=== PATIENT | female | born 1945 | race Caucasian/White ===

== ENCOUNTER 2019-05-11 08:29 | Inpatient (IN) ==
[2019-05-11] MEDS ORDERED: IOPAMIDOL 100 ML BOTTLE IV ONE (08:30)
[2019-05-11] MEDS ORDERED: LACTATED RINGERS 1,000 ML IV ONE (09:03)
[2019-05-11] MEDS ORDERED: PANTOPRAZOLE 40 MG VIAL IV ONE (09:03)
[2019-05-11] MEDS ORDERED: ONDANSETRON 4 MG/2 ML VIAL IV ONE ×2 (09:03→10:27)
[2019-05-11] MEDS ORDERED: SUCRALFATE 1 GM/10 ML ORAL.SUSP PO ONE (09:04)
--- NOTE | 2019-05-11 09:07 | Emergency Department Note ---
Abdominal Pain HPI - General Chief Complaint: Abdominal Pain Stated Complaint: Stomach Pain Time Seen by Provider: 05/11/19 08:55 Source: patient, family Mode of arrival: ambulatory Limitations: no limitations - History of Present Illness HPI Narrative: This 73-year-old female presents to ED with a history of waking up this morning noticing a vague discomfort in the epigastric area. Since then her pain is worsened it. She does tell me that she had a cup of coffee to drink. Does have a little bit of nausea but no vomiting. He is localized in the epigastric area and she denies a history of this before. She did try taking a chewable Pepcid AC but this has not helped any. She thinks was 10 mg. Since then. The pain is worsened in the sense that it seems very severe and intense at times, but then lets up and she is okay. Nonradiating pain. She did have recent surgery in January where she had a bladder suspension surgery, but she denies any lower pelvic pain. She had a normal bowel movement this morning, denies blood in the stools, denies recent flulike symptoms, she's had no chest pain, no shortness of breath. No cardiac history, she's been healthy otherwise. MD Complaint: abdominal pain - Related Data Home Medications Medication Instructions Recorded Confirmed Calcium 1,200 mg PO QDAY 11/27/18 02/26/19 aspirin 81 mg tablet,delayed 81 mg PO QDAY 11/27/18 02/26/19 release cholecalciferol (vitamin D3) 25 1,000 unit PO QDAY 11/27/18 02/26/19 mcg (1,000 unit) capsule diphenhydramine 25 2 tab PO QHS PRN 11/27/18 02/26/19 mg-acetaminophen 500 mg tablet glucosamine sulfate 750 mg tablet 750 mg PO QDAY tab 11/27/18 02/26/19 [id number] 1 tab PO QDAY 11/27/18 02/26/19 naproxen sodium 220 mg tablet 220 mg PO BID PRN 11/27/18 02/26/19 omega-3 fatty acids 1,000 mg 2,000 mg PO QDAY 11/27/18 02/26/19 capsule polyethylene glycol 3350 17 17 g PO QHS PRN g 11/27/18 02/26/19 gram/dose oral powder vit C-vit [id number] PO QDAY 11/27/18 02/26/19 conjugated estrogens 0.625 mg/gram 0.3125 mg VAGINAL .twice weekly g 04/06/19 vaginal cream Previous Rx's Medication Instructions Recorded fluticasone propionate 50 1 spray INTRANASAL QDAY #18.2 ml 02/26/19 mcg/actuation nasal spray,suspension levothyroxine 50 mcg tablet 50 mcg PO QDAY #90 tab 02/26/19 atorvastatin 10 mg tablet See Rx Instructions .ROUTE 04/20/19 .COMPLEX #90 tablet Allergies Allergy/AdvReac Type Severity Reaction Status Date / Time No Known Drug Allergies Allergy Verified 05/11/19 08:36 Review of Systems All systems ED: reviewed and negative except as stated. 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 Absent: conjunctival injection ENT: Present: normal exam, normal oropharynx, mucous membranes moist, TM's normal bilaterally Neck: Present: normal inspection, full ROM Chest: Present: normal inspection, symmetric chest wall rise Respiratory: Present: normal lung sounds bilaterally. Absent: respiratory distress, rales/crackles Cardiovascular: Present: regular rate, normal rhythm, normal heart sounds Abdominal: Present: soft, tenderness, normal bowel sounds. Absent: distention, guarding, rebound, rigidity Abdominal tenderness: Present: epigastrium, mild, other (abdomen generally soft, without guarding or rebound) Course - Reevaluation(s) Reevaluation #1: Signed out to Dr. Mix 930 am Vital Signs Temperature 96.8 F L 05/11/19 08:36 Pulse Rate 71 05/11/19 08:36 Respiratory Rate 18 05/11/19 08:36 Blood Pressure 194/96 05/11/19 08:36 Pulse Oximetry (%) 100 05/11/19 08:36 Temperature 96.8 F L 05/11/19 08:36 Pulse Rate 71 05/11/19 08:36 Respiratory Rate 18 05/11/19 08:36 Blood Pressure 194/96 05/11/19 08:36 Pulse Oximetry (%) 100 05/11/19 08:36 Disposition Pt seen by COMPOUND MACHINE OPERATOR/PA only: No Clinical Impression: Abdominal pain Disposition: Still a Patient Condition: Good Referrals: Zenaida Lazar ARNP [Primary Care Provider] -
[2019-05-11 09:48] LABS: Basophils # (Auto) 0.04 K/mcL (0.00-0.30); Basophils % (Auto) 0.5 % (0.0-2.0); Eosinophils # (Auto) 0.23 K/mcL (0.00-0.70); Eosinophils % (Auto) 2.7 % (0.0-7.0); Granulocytes % (Auto) 47.8 % (38.0-78.0); Hematocrit 44.1 % (34.1-44.9); Hemoglobin 14.2 g/dL (11.2-15.7); Lymphocytes # (Auto) 3.68 K/mcL (1.50-4.80); Lymphocytes % (Auto) 42.5 % (15.5-49.0); Mean Cell Volume 89.1 fL (80.0-100.0); Mean Corpuscular HGB Conc 32.2 g/dL (31.0-36.0); Mean Platelet Volume 9.6 fL (7.4-10.4); Monocytes # (Auto) 0.56 K/mcL (0.10-0.90); Monocytes % (Auto) 6.5 % (1.0-12.0); Platelet Count 239 K/mcL (140-440); RBC 4.95 M/mcL (3.59-5.38); Red Cell Distribution Width 12.9 % (11.5-14.5); WBC 8.7 K/mcL (4.50-11.00)
[2019-05-11] MEDS: HYDROmorphone 2 MG/ML VIAL IV PRN ×3 (09:49→14:34)
--- NOTE | 2019-05-11 09:59 | XRay Report ---
CLINICAL INFORMATION: abd pain COMPARISON: None. FINDINGS: The stomach, small and large bowel are normal caliber. There is no free air, soft tissue mass, organomegaly or pathologic calcification. IMPRESSION: Normal abdomen. Moderate rectal stool incidentally noted Interpreted and Authenticated by: Orion Cruz 05/11/19
--- NOTE | 2019-05-11 10:04 | Emergency Department Note ---
Abdominal Pain HPI - General Chief Complaint: Abdominal Pain Stated Complaint: Stomach Pain Time Seen by Provider: 05/11/19 08:55 Source: patient, family Mode of arrival: ambulatory Limitations: no limitations - History of Present Illness HPI Narrative: See history and physical dictated by Dr. Marr. I am seeing patient in follow-up after change in shift. CBC unremarkable; additional labs pending. Abdominal film: "Normal abdomen. Moderate rectal stool incidentally noted". MD Complaint: abdominal pain - Related Data Home Medications Medication Instructions Recorded Confirmed aspirin 81 mg tablet,delayed 81 mg PO QDAY 11/27/18 05/11/19 release cholecalciferol (vitamin D3) 25 1,000 unit PO QDAY 11/27/18 05/11/19 mcg (1,000 unit) capsule diphenhydramine 25 2 tab PO QHS PRN 11/27/18 05/11/19 mg-acetaminophen 500 mg tablet omega-3 fatty acids 1,000 mg 2,000 mg PO QDAY 11/27/18 05/11/19 capsule polyethylene glycol 3350 17 17 g PO QHS PRN g 11/27/18 05/11/19 gram/dose oral powder conjugated estrogens 0.625 mg/gram 0.3125 mg VAGINAL .twice weekly g 04/06/19 05/11/19 vaginal cream Atorvastatin [Lipitor] 10 mg PO HS 05/11/19 05/11/19 Calcium Carbonate [Calcium] 500 mg PO BID 05/11/19 05/11/19 Loratadine [Claritin] 10 mg PO DAILY 05/11/19 05/11/19 Vit A,C & E/Lutein/Minerals 1 tab PO DAILY 05/11/19 05/11/19 [Ocuvite] Previous Rx's Medication Instructions Recorded fluticasone propionate 50 1 spray INTRANASAL QDAY #18.2 ml 02/26/19 mcg/actuation nasal spray,suspension levothyroxine 50 mcg tablet 50 mcg PO QDAY #90 tab 02/26/19 Allergies Allergy/AdvReac Type Severity Reaction Status Date / Time No Known Drug Allergies Allergy Verified 05/11/19 08:36 Abdominal Pain PMH - Past Medical History 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 ) Family history: Reports: no significant family history - Social History Smoking status: Former smoker Alcohol use: Reports: Rarely Drug use: Reports: none Physical Exam Limitations: no limitations General appearance: alert, in no apparent distress Course Vital Signs Temperature 96.8 F L 05/11/19 08:36 Pulse Rate 71 05/11/19 08:36 Respiratory Rate 18 05/11/19 08:36 Blood Pressure 194/96 05/11/19 08:36 Pulse Oximetry (%) 100 05/11/19 08:36 Temperature 96.8 F L 05/11/19 08:36 Pulse Rate 81 05/11/19 17:32 Respiratory Rate 18 05/11/19 08:36 Blood Pressure 178/89 05/11/19 17:32 Pulse Oximetry (%) 98 05/11/19 17:32 Abdominal Pain - MDM Narrative Medical decision making narrative: Abdominal plain film was unremarkable. Labs were unremarkable with a normal H&H and WBC 8.7, lipase normal. 10:26 AM - some additional nausea with some emesis and given additional antiemetic. US - Normal gallbladder, bile ducts, liver and pancreas. Later in the day she clarified that she had come to the emergency room with a primary concern of the epigastric pain, not the nausea and vomiting at that time. She seemed quite stable and I was about to do omeprazole and nausea medication and send her home. However, she persisted with some of the symptoms of the epigastric discomfort enough and [place] enough to go ahead and order a CT scan of the abdomen and pelvis. 4:06 PM - spoke with radiologist, Dr. Orion Cruz, who points out that he has not seen these much in his career but identifies a right paraduodenal hernia causing some compression of the stomach. 4:09 PM - I spoke with Dr. Addy Modi regarding above and he will further investigate/review. 4:31 PM - I spoke with Dr. Modi who is willing to consult and take care of this patient. I spoke with the patient and she is excepting the possibility of staying here for treatment and would like to speak with Dr. Modi. Dr. Modi notified who will come and speak with the patient. A bed is available. - Lab Data Result diagrams: 05/11/19 09:15 05/11/19 10:31 Lab Results 05/11/19 05/11/19 05/11/19 Range/Units 09:15 09:15 09:15 WBC 8.7 (4.50-11.00) K/mcL RBC 4.95 (3.59-5.38) M/mcL Hgb 14.2 (11.2-15.7) g/dL Hct 44.1 (34.1-44.9) % MCV 89.1 (80.0-100.0) fL MCH 28.7 (26.0-34.0) pg MCHC 32.2 (31.0-36.0) g/dL RDW 12.9 (11.5-14.5) % Plt Count 239 (140-440) K/mcL MPV 9.6 (7.4-10.4) fL Gran % 47.8 (38.0-78.0) % Lymph % (Auto) 42.5 (15.5-49.0) % [place] % (Auto) 6.5 (1.0-12.0) % Eos % (Auto) 2.7 (0.0-7.0) % Baso % (Auto) 0.5 (0.0-2.0) % Gran # 4.14 (1.80-8.00) K/mcL Lymph # (Auto) 3.68 (1.50-4.80) K/mcL [place] # (Auto) 0.56 (0.10-0.90) K/mcL Eos # (Auto) 0.23 (0.00-0.70) K/mcL Baso # (Auto) 0.04 (0.00-0.30) K/mcL VBG Lactic Acid 1.1 (0.5-2.0) mmol/L Sodium TNP Potassium TNP Chloride TNP Carbon Dioxide TNP Anion Gap TNP BUN TNP Creatinine TNP GFR Calculation TNP Glucose TNP Calcium TNP Total Bilirubin TNP AST TNP ALT TNP Alkaline Phosphatase TNP C-Reactive Protein TNP Total Protein TNP Albumin TNP Globulin TNP Albumin/Globulin Ratio TNP Lipase TNP Urine Color Urine Appearance Urine pH (5.0-9.0) Ur Specific [place] (1.000-1.035) Urine Protein (NEG) mg/dL Urine Glucose (UA) (NEG) mg/dL Urine Ketones (NEG) mg/dL Urine Occult Blood (<0.03) mg/dL Urine Nitrate (NEG) Urine Bilirubin (NEG) mg/dL Urine Urobilinogen (NEG) mg/dL Ur Leukocyte Esterase (NEG) /uL Urine RBC (0-1) /hpf Urine WBC (0-4) /hpf Ur Squamous Epith Cells (0-4) /hpf Ur Transition Epith Cell (0-2) /hpf Urine Bacteria (0) /hpf Ur Culture Indicated? 05/11/19 05/11/19 Range/Units 09:35 10:31 WBC (4.50-11.00) K/mcL RBC (3.59-5.38) M/mcL Hgb (11.2-15.7) g/dL Hct (34.1-44.9) % MCV (80.0-100.0) fL MCH (26.0-34.0) pg MCHC (31.0-36.0) g/dL RDW (11.5-14.5) % Plt Count (140-440) K/mcL MPV (7.4-10.4) fL Gran % (38.0-78.0) % Lymph % (Auto) (15.5-49.0) % [place] % (Auto) (1.0-12.0) % Eos % (Auto) (0.0-7.0) % Baso % (Auto) (0.0-2.0) % Gran # (1.80-8.00) K/mcL Lymph # (Auto) (1.50-4.80) K/mcL [place] # (Auto) (0.10-0.90) K/mcL Eos # (Auto) (0.00-0.70) K/mcL Baso # (Auto) (0.00-0.30) K/mcL VBG Lactic Acid (0.5-2.0) mmol/L Sodium 140 Potassium 3.5 Chloride 107 Carbon Dioxide 23 Anion Gap 10.0 BUN 13 Creatinine 0.8 GFR Calculation 74 Glucose 131 H Calcium 9.1 Total Bilirubin 0.5 AST 24 ALT 26 Alkaline Phosphatase 42 C-Reactive Protein < 0.3 Total Protein 6.5 Albumin 4.1 Globulin 2.4 Albumin/Globulin Ratio 1.7 Lipase 18 Urine Color Straw Urine Appearance Clear Urine pH 9.0 (5.0-9.0) Ur Specific [place] 1.005 (1.000-1.035) Urine Protein Neg (NEG) mg/dL Urine Glucose (UA) Negative (NEG) mg/dL Urine Ketones Neg (NEG) mg/dL Urine Occult Blood 0.03 A (<0.03) mg/dL Urine Nitrate Neg (NEG) Urine Bilirubin Neg (NEG) mg/dL Urine Urobilinogen Neg (NEG) mg/dL Ur Leukocyte Esterase Neg (NEG) /uL Urine RBC 2 H (0-1) /hpf Urine WBC 0 (0-4) /hpf Ur Squamous Epith Cells 2 (0-4) /hpf Ur Transition Epith Cell < 1 (0-2) /hpf Urine Bacteria Few A (0) /hpf Ur Culture Indicated? Yes Disposition Pt seen by PAINTER PLATE/PA only: No Clinical Impression: Hernia, internal Abdominal pain Qualifiers: Abdominal location: epigastric Qualified Code(s): R10.13 - Epigastric pain Summary: Patient was evaluated by Dr. Modi and scheduled for surgery in the morning. See above. Disposition: Xfer As Inpt ([facility]) Condition: Fair Referrals: Zenaida Lazar ARNP [Primary Care Provider] -
[2019-05-11 10:24] LABS: Appearance,Urine CLEAR; Bacteria,Urine FEW /hpf (0); Bilirubin,Urine NEG (NEG); Color,Urine STRAW; Culture Indicated,Urine YES; Glucose,Urine (UA) NEGATIVE (NEG); Ketones,Urine NEG (NEG); Leukocyte Esterase,Urine NEG /uL (NEG); Nitrate,Urine NEG (NEG); Protein,Urine NEG (NEG); Specific Gravity,Urine 1.005 (1.000-1.035); Urine Blood 0.03 mg/dL (<0.03); Urine RBC 2 /hpf (0-1); Urine Squamous Epithelial Cell 2 /hpf (0-4); Urine Transitional Epi Cells < 1 /hpf (0-2); Urine WBC 0 /hpf (0-4); Urobilinogen,Urine NEG (NEG)
[2019-05-11] MEDS ORDERED: ONDANSETRON 4 MG/2 ML VIAL ONE (10:28)
[2019-05-11] MEDS ORDERED: PROMETHAZINE 25 MG/ML VIAL IV ONE ×2 (11:08→16:56)
[2019-05-11 11:29] LABS: Chloride 107 mmol/L (96-108)
[2019-05-11 11:30] LABS: ALT/SGPT 26 U/l (0-40); AST/SGOT 24 U/l (0-37); Albumin 4.1 gm/dL (3.2-5.2); Albumin/Globulin Ratio 1.7 (1.0-2.3); Alkaline Phosphatase 42 U/L (39-117); Bilirubin,Total 0.5 mg/dL (0.0-1.0); Blood Urea Nitrogen 13 mg/dl (8-23); C-Reactive Protein < 0.3 mg/dl (0.0-0.8); Calcium 9.1 mg/dl (8.6-10.4); Carbon Dioxide 23 mmol/L (22-30); Globulin 2.4 gm/dL (2.2-3.7); Glomerular Filtration Rate 74; Glucose 131 mg/dL (70-105)
--- NOTE | 2019-05-11 13:22 | Ultrasound Report ---
CLINICAL INFORMATION: abd pain, possible gall bladder COMPARISON: None. FINDINGS: Gallbladder and bile ducts are normal CBD is 4 mm. The liver and pancreas are normal in size and echotexture without focal lesion. No free fluid IMPRESSION: Normal gallbladder, bile ducts, liver and pancreas. Interpreted and Authenticated by: Orion Cruz 05/11/19
[2019-05-11] MEDS ORDERED: PROCHLORPERAZINE 10 MG/2 ML VIAL IV ONE (15:04)
--- NOTE | 2019-05-11 16:03 | Cat Scan Report ---
CLINICAL INFORMATION: Epigastric pain COMPARISON: None. TECHNIQUE: Following enteric contrast, 80 cc of Isovue-370 were injected intravenously, and 60 seconds later, 0.625 mm helical slices were obtained from the mid heart through the subtrochanteric regions. Following reconstruction, 2.5 mm sagittal, coronal and axial reformatted images were processed and reviewed at bone, lung and soft tissue windows. Five minutes later, 0.625 mm helical slices were obtained from the mid heart through the kidneys and viewed at soft tissue windows.The exam was performed using radiation dose optimization techniques including, but not limited to, automated exposure control, adjustment of the mA and/or kV according to patient size and use of iterative reconstruction technique. FINDINGS: Lung bases show no abnormality no effusion. The visualized heart is normal. Abdominal images show mild fatty change within the liver without focal lesion. Gallbladder and bile ducts are normal CBD is 5 mm. Both kidneys, adrenal glands, spleen, pancreas and aorta are normal in size configuration and attenuation without focal lesion. There is no free air, free fluid or adenopathy. Pelvic images show hysterectomy changes. The ovaries are not identified either surgically absent or atrophic. Urinary bladder is unremarkable. There is a large right paraduodenal hernia consisting of the hepatic flexure which has migrated superiorly and medially through the fossa of [place]. The hernia sac spans 10 cm and consists of a markedly dilated hepatic flexure, a small bowel segment, mesenteric fat and swirled mesenteric vessels fat . It is juxtaposed to the anterior surface of the pancreas. It is also posterior to the gastric antrum which is markedly extrinsically compressed by the hernia sac. It has not resulted in bowel obstruction pattern. The remainder of the colon is unremarkable. Bone windows show no osseous abnormality. IMPRESSION: Large right paraduodenal hernia transgressed through the fossa of [place]. The 10 cm hernia sac consists of the hepatic flexure, a small bowel segment, mesenteric fat and whirling mesenteric vessels . It is anterior to the pancreas. It is posterior to the gastric antrum resulting in severe extrinsic gastric compression. Stomach compression has likely resulted in decreased oral intake and the reason for lack of bowel obstruction pattern. No evidence of perforation or free fluid to suggest third spacing. Interpreted and Authenticated by: Orion Cruz 05/11/19
--- NOTE | 2019-05-11 17:23 | General Surg History&Physical ---
History of Present Illness Patient information: Note initiated : 05/11/19 at 5:20 pm Service Date, if different from initiated Date: [] Patient: Sirisha Patterson a 73 y/o F admitted on for Stomach Pain. Chief Complaint: [] HPI: Ms. Patterson is a 73 year old F admitted with severe abdominal pain nausea and vomiting. The patient had onset of midepigastric pain about 4 AM today. The pain increased in intensity and she finally was seen in the emergency room. Initial x-rays were nondiagnostic but she continued to be symptomatic, so a follow-up CT was done. CT shows a right paraduodenal hernia with entrapment of hepatic flexure of colon and multiple loops of small bowel and omentum. This is causing compression of the antrum and blockage of the duodenum. She has a large volume of liquid in her stomach. The patient is having recurrent emesis while she is being evaluated, but this appears to be mostly contrast. She is counseled for laparotomy with reduction of the colon and small bowel loops and subsequent closure of the hernia defect into the lesser sac. Review of Systems All systems PM: reviewed and no additional remarkable complaints except as stated (negative except as noted in the history of present illness) Past History Past medical history: Hypertension, untreated Past surgical history: Robotic puborectal sling January 2009 Vaginal hysterectomy many years ago Past family history: Father age 74 due to complications of coronary artery disease and peripheral vascular disease Mother age 94 due to natural causes Past social history: Lives locally. No tobacco use. Drinks wine every night. Denies drug use Medications and Allergies Home Medications Medication Instructions Recorded Confirmed Type aspirin 81 mg tablet,delayed 81 mg PO QDAY 11/27/18 05/11/19 History release cholecalciferol (vitamin D3) 25 1,000 unit PO QDAY 11/27/18 05/11/19 History mcg (1,000 unit) capsule diphenhydramine 25 2 tab PO QHS PRN 11/27/18 05/11/19 History mg-acetaminophen 500 mg tablet omega-3 fatty acids 1,000 mg 2,000 mg PO QDAY 11/27/18 05/11/19 History capsule polyethylene glycol 3350 17 17 g PO QHS PRN g 11/27/18 05/11/19 History gram/dose oral powder fluticasone propionate 50 1 spray INTRANASAL QDAY #18.2 ml 02/26/19 05/11/19 Rx mcg/actuation nasal spray,suspension levothyroxine 50 mcg tablet 50 mcg PO QDAY #90 tab 02/26/19 05/11/19 Rx conjugated estrogens 0.625 mg/gram 0.3125 mg VAGINAL .twice weekly g 04/06/19 05/11/19 History vaginal cream Atorvastatin [Lipitor] 10 mg PO HS 05/11/19 05/11/19 History Calcium Carbonate [Calcium] 500 mg PO BID 05/11/19 05/11/19 History Loratadine [Claritin] 10 mg PO DAILY 05/11/19 05/11/19 History Vit A,C & E/Lutein/Minerals 1 tab PO DAILY 05/11/19 05/11/19 History [Ocuvite] Allergies Allergy/AdvReac Type Severity Reaction Status Date / Time No Known Drug Allergies Allergy Verified 05/11/19 08:36 Exam Temp Pulse Resp BP Pulse Ox 96.8 F L 65 18 156/80 95 05/11/19 08:36 05/11/19 16:14 05/11/19 08:36 05/11/19 16:01 05/11/19 16:14 - General physical appearance well developed, well nourished, no distress - Eyes PERRL, normal ocular movement - ENT normal pinna, normal nares, normal mucosa, no hearing loss, no congestion - Head Head exam IM: Present: atraumatic, normocephalic - Neck no masses, no bruits, trachea midline, no lymphadenopathy, no venous distension - Cardiovascular Cardiovascular exam IM: Present: normal rate and rhythm, RRR, +S1, +S2. Absent: JVD, tachycardia - Respiratory normal expansion, normal respiratory effort, clear to auscultation - Abdomen Abdomen: Present: soft, tender (epigastric tenderness and fullness without palpable mass), bowel sounds Hernia: Present: none - Genitourinary Present: normal external genitalia - Integumentary Present: no rash, no growths, no abnormal pigmentation - Neurologic Present: normal coordination, normal sensation - Musculoskeletal Present: normal gait, normal posture - Psychiatric Present: oriented to time, oriented to person, oriented to place, speech is normal, memory intact Assessment and Plan (1) Complete gastric outlet obstruction Nasogastric decompression tonight. IV hydration. Scheduled for laparotomy with repair of internal hernia and decompression of colon and small bowel in the morning. IV antibiotic coverage pending surgery Status: Acute (2) Hernia, internal As noted above Status: Acute
[2019-05-11] MEDS ORDERED: PROMETHAZINE 25 MG/ML VIAL IV PRN (17:29)
[2019-05-11] MEDS ORDERED: ONDANSETRON 4 MG/2 ML VIAL IV PRN (17:29)
[2019-05-11] MEDS ORDERED: HYDROmorphone 2 MG/ML VIAL IV PRN ×2 (17:29→17:36)
[2019-05-11] MEDS ORDERED: cefTRIAXone 1 GM in DEXTROSE 5% IN WATER 50 ML IV SCH (17:30)
[2019-05-11] MEDS ORDERED: hydrALAZINE 20 MG/ML VIAL IV PRN (17:36)
[2019-05-11] MEDS ORDERED: ACETAMINOPHEN 1,000 MG in PREMIX 1 BAG IV SCH (17:45)
[2019-05-11] MEDS ORDERED: ACETAMINOPHEN 900 MG/90 ML BOTTLE IV PRN (18:36)
[2019-05-11 19:29] LABS: INR 0.9 (0.9-1.1); Prothrombin Time 12.2 sec (11.9-14.5)
[2019-05-11] MEDS: cefTRIAXone 1 GM VIAL IV SCH (20:05)
[2019-05-11] MEDS: LACTATED RINGERS 1,000 ML IV SCH (20:12)
[2019-05-11] MEDS: METOCLOPRAMIDE 10 MG/2 ML VIAL IV SCH ×2 (20:13→23:55)
[2019-05-11] MEDS ORDERED: BENZOCAINE 1 SPRAY BOTTLE TOPICAL PRN (21:05)
[2019-05-11] MEDS ORDERED: BENZOCAINE 1 SPRAY BOTTLE TOPICAL ONE (21:07)
[2019-05-11] MEDS: 0.9 % SODIUM CHLORIDE 10 ML SYRINGE IV SCH (22:21)
[2019-05-11] MEDS: LORazepam 2 MG/ML VIAL IV PRN (22:21)
[2019-05-12] MEDS: LACTATED RINGERS 1,000 ML IV SCH ×4 (03:25→21:41)
--- NOTE | 2019-05-12 04:43 | XRay Report ---
CLINICAL INFORMATION: NG Tube Placement COMPARISON: None. FINDINGS: NG tube overlies the gastric fundus. Stool gas pattern is normal. No free air, soft tissue mass or organomegaly. Residual contrast seen within the upper collecting systems of the kidney. IMPRESSION: NG tube overlying the gastric fundus. No acute disease Interpreted and Authenticated by: Orion Cruz 05/12/19
[2019-05-12] MEDS: METOCLOPRAMIDE 10 MG/2 ML VIAL IV SCH ×3 (05:44→18:16)
[2019-05-12] MEDS: 0.9 % SODIUM CHLORIDE 10 ML SYRINGE IV SCH ×3 (06:08→23:05)
[2019-05-12] MEDS: LORazepam 2 MG/ML VIAL IV PRN (06:41)
[2019-05-12 07:08] LABS: Basophils # (Auto) 0.05 K/mcL (0.00-0.30); Basophils % (Auto) 0.4 % (0.0-2.0); Eosinophils # (Auto) 0.21 K/mcL (0.00-0.70); Eosinophils % (Auto) 1.7 % (0.0-7.0); Granulocytes % (Auto) 60.4 % (38.0-78.0); Hematocrit 36.2 % (34.1-44.9); Hemoglobin 11.8 g/dL (11.2-15.7); Lymphocytes # (Auto) 3.68 K/mcL (1.50-4.80); Lymphocytes % (Auto) 29.9 % (15.5-49.0); Mean Corpuscular HGB Conc 32.6 g/dL (31.0-36.0); Mean Platelet Volume 9.3 fL (7.4-10.4); Monocytes # (Auto) 0.93 K/mcL (0.10-0.90); Monocytes % (Auto) 7.6 % (1.0-12.0); Platelet Count 221 K/mcL (140-440); RBC 4.02 M/mcL (3.59-5.38); WBC 12.3 K/mcL (4.50-11.00)
[2019-05-12] MEDS ORDERED: PANTOPRAZOLE 40 MG VIAL IV SCH (07:30)
[2019-05-12 07:57] LABS: ALT/SGPT 22 U/l (0-40); AST/SGOT 22 U/l (0-37); Albumin 3.9 gm/dL (3.2-5.2); Albumin/Globulin Ratio 1.6 (1.0-2.3); Alkaline Phosphatase 42 U/L (39-117); Bilirubin,Direct < 0.2 mg/dL (0.0-0.3); Bilirubin,Total 0.5 mg/dL (0.0-1.0); Blood Urea Nitrogen 10 mg/dl (8-23); Carbon Dioxide 23 mmol/L (22-30); Chloride 106 mmol/L (96-108); Globulin 2.4 gm/dL (2.2-3.7); Glomerular Filtration Rate 74; Glucose 88 mg/dL (70-105); Lactate Dehydrogenase 172 U/L (94-250); Phosphorous 2.7 mg/dL (2.7-4.5); Triglycerides 74 mg/dl (<150); Uric Acid 4.7 mg/dL (2.5-8.0)
[2019-05-12] MEDS ORDERED: IPRATROPIUM/ALBUTEROL 3 ML AMPUL.NEB NEB PRN ×2 (09:00→11:14)
[2019-05-12] MEDS ORDERED: SCOPOLAMINE 1 PATCH PATCH TOPICAL PRN (09:30)
[2019-05-12] MEDS ORDERED: fentaNYL 100 MCG/2 ML VIAL IV ONE (10:06)
[2019-05-12] MEDS ORDERED: LIDOCAINE HCL/PF 100 MG/5 ML SYRINGE IV ONE (10:06)
[2019-05-12] MEDS ORDERED: PROPOFOL 200 MG/20 ML VIAL IV ONE (10:06)
[2019-05-12] MEDS ORDERED: ONDANSETRON 4 MG/2 ML VIAL IV ONE (10:06)
[2019-05-12] MEDS ORDERED: ROPIVACAINE HCL/PF 20 ML VIAL IJ ONE (10:06)
[2019-05-12] MEDS ORDERED: SUGAMMADEX SODIUM 200 MG/2 ML VIAL IV ONE (10:06)
[2019-05-12] MEDS ORDERED: KETAMINE 100 MG/ML ML IV ONE (10:06)
[2019-05-12] MEDS ORDERED: ROCURONIUM 10 MG/ML ML IV ONE (10:06)
[2019-05-12] MEDS ORDERED: DEXAMETHASONE 10 MG/ML VIAL IV ONE (10:06)
[2019-05-12] MEDS ORDERED: ePHEDrine 50 MG/ML AMPUL IV ONE (10:06)
--- NOTE | 2019-05-12 10:25 | XRay Report ---
CLINICAL INFORMATION: preoperative evaluation COMPARISON: None. FINDINGS: Heart size, mediastinum and pulmonary vessels are normal. The lungs are clear. No effusions. NG tube tip overlies the gastric antrum IMPRESSION: Negative Interpreted and Authenticated by: Orion Cruz 05/12/19
[2019-05-12] MEDS ORDERED: PROMETHAZINE 25 MG/ML VIAL IV PRN ×2 (11:14→12:44)
[2019-05-12] MEDS ORDERED: MEPERIDINE 25 MG/ML SYRINGE IV PRN (11:14)
[2019-05-12] MEDS ORDERED: ACETAMINOPHEN 1,000 MG/100 ML BOTTLE IV ONE (11:14)
[2019-05-12] MEDS ORDERED: diphenhydrAMINE 50 MG/ML VIAL IV PRN (11:14)
[2019-05-12] MEDS ORDERED: FLUMAZENIL 0.1 MG/ML ML IV PRN (11:14)
[2019-05-12] MEDS ORDERED: NALOXONE HCL 0.4 MG/ML VIAL IV PRN (11:14)
[2019-05-12] MEDS ORDERED: ONDANSETRON 4 MG/2 ML VIAL IV PRN ×2 (11:14→12:44)
[2019-05-12] MEDS ORDERED: BENZOCAINE/MENTHOL 1 LOZENGE PO PRN (11:14)
[2019-05-12] MEDS ORDERED: LACTATED RINGERS 250 ML IV PRN (11:14)
[2019-05-12] MEDS ORDERED: LACTATED RINGERS 1,000 ML IV SCH (11:15)
--- NOTE | 2019-05-12 11:35 | Brief Operative Note ---
Date of procedure: 05/12/19 Pre-op diagnosis: INTERNAL HERNIA PARADUODENAL) WITH DUODENAL OBSTRUCTION( Post-op diagnosis: other (PARADUODENAL HERNIA WITH COLON AND SMALL BOWEL OBSTRUCTION; MALROTATION OF RIGHT COLON) Procedure: LAPAROTOMY WITH REPAIR OF PARADUODENAL HERNIA ;APPENDECTOMY Grafts/Implants: No Anesthesia: GETA Findings: LARGE RETRODUODENAL DEFECT WITH HERNIATION OF MULTIPLE SMALL BOWEL LOOPS;RIGHT COLON INCLUDING CECUM ; OMENTUM Complications: none Surgeon: Dany Modi Estimated blood loss (cc): 15 Specimens Removed/Pathology: none sent Condition: stable Disposition: PACU
[2019-05-12] MEDS: fentaNYL 100 MCG/2 ML VIAL IV PRN ×2 (12:00→12:05)
[2019-05-12] MEDS ORDERED: BENZOCAINE 1 SPRAY BOTTLE TOPICAL PRN (12:44)
[2019-05-12] MEDS ORDERED: cefTRIAXone 1 GM VIAL IV ONE (13:28)
[2019-05-12] MEDS: cefTRIAXone 1 GM VIAL IV SCH (14:25)
[2019-05-12] MEDS: PANTOPRAZOLE 40 MG VIAL IV SCH (17:24)
[2019-05-12] MEDS: ACETAMINOPHEN 900 MG/90 ML BOTTLE IV SCH (17:47)
[2019-05-12] MEDS ORDERED: ACETAMINOPHEN 900 MG/90 ML BOTTLE IV SCH (18:00)
[2019-05-12] MEDS: HYDROmorphone 2 MG/ML VIAL IV PRN (19:39)
[2019-05-13] MEDS: ACETAMINOPHEN 900 MG/90 ML BOTTLE IV SCH ×5 (00:11→23:21)
[2019-05-13] MEDS: METOCLOPRAMIDE 10 MG/2 ML VIAL IV SCH ×4 (00:12→17:34)
[2019-05-13] MEDS: LORazepam 2 MG/ML VIAL IV PRN (02:25)
[2019-05-13] MEDS: 0.9 % SODIUM CHLORIDE 10 ML SYRINGE IV SCH ×3 (05:55→21:47)
[2019-05-13] MEDS: LACTATED RINGERS 1,000 ML IV SCH ×3 (07:36→18:05)
[2019-05-13] MEDS: PANTOPRAZOLE 40 MG VIAL IV SCH ×2 (07:37→16:32)
[2019-05-13] MEDS: HYDROmorphone 2 MG/ML VIAL IV PRN ×3 (07:37→23:30)
[2019-05-13] MEDS: cefTRIAXone 1 GM VIAL IV SCH (09:17)
--- NOTE | 2019-05-13 14:28 | General Surgery Progress Note ---
Subjective Patient reports: feels better, still having pain, pain is less, no flatus, no bowel movement, afebrile Narrative: Note initiated : 05/13/19 at 2:26 pm Service Date, if different from initiated Date: [] Patient: Sirisha Patterson 73 y/o F admitted on 05/11/19 for Stomach Pain. Chief Complaint: [patient is well. She has had minimal output through her NG tube. She denies flatus but has had good active bowel sounds. Urine output is excellent. Incision looks good.] Objective Temp Pulse Resp BP Pulse Ox 98.7 F 92 H 18 155/81 97 05/13/19 12:00 05/13/19 12:00 05/13/19 12:00 05/13/19 12:00 05/13/19 12:00 - Additional Data Intake & Output - Last 24 hours: Intake & Output 05/11/19 05/12/19 05/13/19 05/14/19 05:59 05:59 05:59 05:59 Intake Total 1902 3280 1180 Output Total 1600 1550 Balance 302 1730 1180 Weight 139 lb 8 oz 142 lb 12.8 oz - General physical appearance well developed, well nourished, no distress - Eyes PERRL, normal ocular movement - ENT normal pinna, normal nares, normal mucosa, no hearing loss, no congestion - Neck no masses, no bruits, trachea midline, no lymphadenopathy, no venous distension - Respiratory normal expansion, normal respiratory effort, clear to auscultation - Cardiovascular Cardiovascular exam: Present: normal rate and rhythm, RRR, +S1, +S2. Absent: JVD, tachycardia - Abdomen tender (mild incisional tenderness; incision looks good; good active bowel so unds; no significant distention) - Integumentary no rash, no growths, no abnormal pigmentation - Neurologic normal coordination, normal sensation - Musculoskeletal normal gait, normal posture - Psychiatric oriented to time, oriented to person, oriented to place, speech is normal, memory intact - Labs 05/12/19 05:30 05/12/19 05:30 Assessment and Plan (1) Hernia, internal Status: Acute Assessment and plan: Discontinue Peterson catheter. Discontinue nasogastric tube. Start clear liquid diet as tolerated. Reduce Dilaudid 0.5 mg every 12 hours when necessary Substitute oxycodone 5 mg every 4 hours when necessary for oral intake. Check CBC and IP Current Visit: Yes - Time Spent With Patient Total time spent is greater than 50% in coordination of care (as documented) at patient's floor/unit and/or counseling patient:
[2019-05-13] MEDS: hydrALAZINE 20 MG/ML VIAL IV PRN (16:32)
[2019-05-13] MEDS: oxyCODONE HCL 5 MG TABLET PO PRN (21:45)
[2019-05-14] MEDS: METOCLOPRAMIDE 10 MG/2 ML VIAL IV SCH ×4 (00:05→18:11)
[2019-05-14] MEDS: hydrALAZINE 20 MG/ML VIAL IV PRN (00:11)
[2019-05-14] MEDS: ACETAMINOPHEN 900 MG/90 ML BOTTLE IV SCH ×3 (05:31→18:21)
[2019-05-14] MEDS: 0.9 % SODIUM CHLORIDE 10 ML SYRINGE IV SCH ×3 (05:32→20:57)
[2019-05-14] MEDS: oxyCODONE HCL 5 MG TABLET PO PRN ×4 (05:57→19:56)
[2019-05-14 06:55] LABS: Basophils # (Auto) 0.07 K/mcL (0.00-0.30); Basophils % (Auto) 0.5 % (0.0-2.0); Eosinophils # (Auto) 0.08 K/mcL (0.00-0.70); Eosinophils % (Auto) 0.5 % (0.0-7.0); Granulocytes % (Auto) 68.7 % (38.0-78.0); Hematocrit 38.2 % (34.1-44.9); Hemoglobin 12.2 g/dL (11.2-15.7); Lymphocytes # (Auto) 3.56 K/mcL (1.50-4.80); Mean Cell Volume 90.5 fL (80.0-100.0); Mean Corpuscular HGB Conc 31.9 g/dL (31.0-36.0); Mean Platelet Volume 9.2 fL (7.4-10.4); Monocytes # (Auto) 0.93 K/mcL (0.10-0.90); Monocytes % (Auto) 6.3 % (1.0-12.0); Platelet Count 234 K/mcL (140-440); RBC 4.22 M/mcL (3.59-5.38); Red Cell Distribution Width 13.5 % (11.5-14.5); WBC 14.9 K/mcL (4.50-11.00)
[2019-05-14 07:23] LABS: ALT/SGPT 51 U/l (0-40); AST/SGOT 53 U/l (0-37); Albumin 3.7 gm/dL (3.2-5.2); Albumin/Globulin Ratio 1.1 (1.0-2.3); Alkaline Phosphatase 43 U/L (39-117); Bilirubin,Direct < 0.2 mg/dL (0.0-0.3); Bilirubin,Total 0.8 mg/dL (0.0-1.0); Calcium 8.7 mg/dl (8.6-10.4); Carbon Dioxide 22 mmol/L (22-30); Chloride 101 mmol/L (96-108); Globulin 3.3 gm/dL (2.2-3.7); Glomerular Filtration Rate 87; Glucose 100 mg/dL (70-105); Lactate Dehydrogenase 301 U/L (94-250); Triglycerides 96 mg/dl (<150); Uric Acid 4.2 mg/dL (2.5-8.0)
[2019-05-14 07:26] LABS: Blood Urea Nitrogen 7 mg/dl (8-23); Phosphorous 1.9 mg/dL (2.7-4.5)
[2019-05-14] MEDS: cefTRIAXone 1 GM VIAL IV SCH (08:31)
[2019-05-14] MEDS: PANTOPRAZOLE 40 MG VIAL IV SCH ×2 (08:31→18:20)
[2019-05-14] MEDS ORDERED: POTASSIUM PHOSPHATE 40 MEQ in DEXTROSE 5% IN WATER 500 ML IV ONE ×2 (13:00→17:00)
--- NOTE | 2019-05-14 17:26 | General Surgery Progress Note ---
Subjective Patient reports: feels better, pain is less, flatus Narrative: Note initiated : 05/14/19 at 5:25 pm Service Date, if different from initiated Date: [] Patient: Sirisha Patterson 73 y/o F admitted on 05/11/19 for Stomach Pain. Chief Complaint: [Patient is doing well. She has less discomfort. She denies nausea. She is having flatus but no bowel movements far. She denies abdominal distention. White blood count 14.9,; hemoglobin 12.2, hematocrit 38.2, potassium 3, BUN 7, creatinine 0.7, phosphorus 1.9] Objective Temp Pulse Resp BP Pulse Ox 98.7 F 95 H 18 144/71 96 05/14/19 12:00 05/14/19 12:00 05/14/19 12:00 05/14/19 12:00 05/14/19 12:00 - Additional Data Intake & Output - Last 24 hours: Intake & Output 05/12/19 05/13/19 05/14/19 05/15/19 05:59 05:59 05:59 05:59 Intake Total 1902 3280 3210 1980 Output Total 1600 1550 5100 1600 Balance 302 1730 -1890 380 Weight 139 lb 8 oz 142 lb 12.8 oz 142 lb 9.6 oz - General physical appearance well developed, well nourished, no distress - Eyes PERRL, normal ocular movement - ENT normal pinna, normal nares, normal mucosa, no hearing loss, no congestion - Neck no masses, no bruits, trachea midline, no lymphadenopathy, no venous distension - Respiratory normal expansion, normal respiratory effort, clear to auscultation - Cardiovascular Cardiovascular exam: Present: normal rate and rhythm, +S1, +S2. Absent: RRR, tachycardia - Abdomen tender (mild incisional tenderness), bowel sounds (present), surgical scars (none), masses (none) - Integumentary no rash, no growths, no abnormal pigmentation - Neurologic normal coordination, normal sensation - Musculoskeletal normal gait, normal posture - Psychiatric oriented to time, oriented to person, oriented to place, speech is normal, memory intact - Labs 05/14/19 05:30 05/14/19 05:30 Diabetes panel 05/14/19 Range/Units 05:30 Sodium 139 (133-145) mmol/L Potassium 3.0 L (3.3-5.1) mmol/L Chloride 101 (96-108) mmol/L Carbon Dioxide 22 (22-30) mmol/L BUN 7 L (8-23) mg/dl Creatinine 0.7 (0.6-1.1) mg/dl Glucose 100 (70-105) mg/dL Calcium 8.7 (8.6-10.4) mg/dl AST 53 H (0-37) U/l ALT 51 H (0-40) U/l Alkaline Phosphatase 43 (39-117) U/L Total Protein 7.0 (5.9-8.4) gm/dL Albumin 3.7 (3.2-5.2) gm/dL Triglycerides 96 (<150) mg/dl Calcium panel 05/14/19 Range/Units 05:30 Calcium 8.7 (8.6-10.4) mg/dl Phosphorus 1.9 L (2.7-4.5) mg/dL Albumin 3.7 (3.2-5.2) gm/dL Pituitary panel 05/14/19 Range/Units 05:30 Sodium 139 (133-145) mmol/L Potassium 3.0 L (3.3-5.1) mmol/L Chloride 101 (96-108) mmol/L Carbon Dioxide 22 (22-30) mmol/L BUN 7 L (8-23) mg/dl Creatinine 0.7 (0.6-1.1) mg/dl Glucose 100 (70-105) mg/dL Calcium 8.7 (8.6-10.4) mg/dl Adrenal panel 05/14/19 Range/Units 05:30 Sodium 139 (133-145) mmol/L Potassium 3.0 L (3.3-5.1) mmol/L Chloride 101 (96-108) mmol/L Carbon Dioxide 22 (22-30) mmol/L BUN 7 L (8-23) mg/dl Creatinine 0.7 (0.6-1.1) mg/dl Glucose 100 (70-105) mg/dL Calcium 8.7 (8.6-10.4) mg/dl Total Bilirubin 0.8 (0.0-1.0) mg/dL AST 53 H (0-37) U/l ALT 51 H (0-40) U/l Alkaline Phosphatase 43 (39-117) U/L Total Protein 7.0 (5.9-8.4) gm/dL Albumin 3.7 (3.2-5.2) gm/dL Assessment and Plan (1) Hernia, internal Status: Acute Assessment and plan: Start clear liquid diet as tolerated. Reduce Dilaudid 0.5 mg every 12 hours when necessary Substitute oxycodone 5 mg every 4 hours when necessary for oral intake. Check CBC and IP * MiraLAX 3 times daily Current Visit: Yes - Time Spent With Patient Total time spent is greater than 50% in coordination of care (as documented) at patient's floor/unit and/or counseling patient:
[2019-05-15] MEDS: ACETAMINOPHEN 900 MG/90 ML BOTTLE IV SCH ×5 (00:01→23:40)
[2019-05-15] MEDS: METOCLOPRAMIDE 10 MG/2 ML VIAL IV SCH ×5 (00:02→23:41)
[2019-05-15] MEDS: oxyCODONE HCL 5 MG TABLET PO PRN ×3 (00:02→16:49)
[2019-05-15] MEDS: LACTATED RINGERS 1,000 ML IV SCH ×3 (00:16→09:44)
[2019-05-15] MEDS: hydrALAZINE 20 MG/ML VIAL IV PRN ×3 (04:07→23:41)
[2019-05-15] MEDS: 0.9 % SODIUM CHLORIDE 10 ML SYRINGE IV SCH ×4 (04:08→20:17)
[2019-05-15 08:05] LABS: Basophils # (Auto) 0.04 K/mcL (0.00-0.30); Basophils % (Auto) 0.4 % (0.0-2.0); Eosinophils # (Auto) 0.28 K/mcL (0.00-0.70); Eosinophils % (Auto) 2.9 % (0.0-7.0); Granulocytes % (Auto) 52.8 % (38.0-78.0); Hematocrit 40.3 % (34.1-44.9); Hemoglobin 13.1 g/dL (11.2-15.7); Lymphocytes # (Auto) 3.43 K/mcL (1.50-4.80); Lymphocytes % (Auto) 35.6 % (15.5-49.0); Mean Cell Volume 89.8 fL (80.0-100.0); Mean Corpuscular HGB Conc 32.5 g/dL (31.0-36.0); Mean Platelet Volume 9.3 fL (7.4-10.4); Monocytes % (Auto) 8.3 % (1.0-12.0); Platelet Count 238 K/mcL (140-440); RBC 4.49 M/mcL (3.59-5.38); Red Cell Distribution Width 13.3 % (11.5-14.5); WBC 9.6 K/mcL (4.50-11.00)
[2019-05-15] MEDS: PANTOPRAZOLE 40 MG VIAL IV SCH ×2 (08:05→16:49)
[2019-05-15 08:41] LABS: ALT/SGPT 42 U/l (0-40); AST/SGOT 41 U/l (0-37); Albumin/Globulin Ratio 1.3 (1.0-2.3); Alkaline Phosphatase 44 U/L (39-117); Bilirubin,Direct < 0.2 mg/dL (0.0-0.3); Bilirubin,Total 0.7 mg/dL (0.0-1.0); Calcium 9.4 mg/dl (8.6-10.4); Carbon Dioxide 21 mmol/L (22-30); Chloride 107 mmol/L (96-108); Globulin 3.1 gm/dL (2.2-3.7); Glomerular Filtration Rate 87; Glucose 102 mg/dL (70-105); Lactate Dehydrogenase 293 U/L (94-250); Triglycerides 117 mg/dl (<150); Uric Acid 3.3 mg/dL (2.5-8.0)
[2019-05-15 08:47] LABS: Blood Urea Nitrogen 4 mg/dl (8-23); Phosphorous 3.5 mg/dL (2.7-4.5)
[2019-05-15] MEDS: cefTRIAXone 1 GM VIAL IV SCH (09:44)
[2019-05-15] MEDS: POLYETHYLENE GLYCOL 3350 17 GM PACKET PO SCH ×2 (15:08→19:37)
--- NOTE | 2019-05-15 17:42 | General Surgery Progress Note ---
Subjective Patient reports: feels better, pain is less, flatus, no bowel movement, afebrile Narrative: Note initiated : 05/15/19 at 5:39 pm Service Date, if different from initiated Date: [] Patient: Sirisha Patterson 73 y/o F admitted on 05/11/19 for Stomach Pain. Chief Complaint: [Patient continues to improve. She still not have bowel movements for. She denies nausea. She is having flatus. White blood count 9.6, hemoglobin 13.1, hematocrit 40.3, potassium 3.4] Objective Temp Pulse Resp BP Pulse Ox 98.5 F 78 20 148/70 95 05/15/19 12:00 05/15/19 12:00 05/15/19 12:00 05/15/19 15:58 05/15/19 12:00 - Additional Data Intake & Output - Last 24 hours: Intake & Output 05/13/19 05/14/19 05/15/19 05/16/19 05:59 05:59 05:59 05:59 Intake Total 3280 3210 5123.1818 1920 Output Total 1550 5100 4175 1575 Balance 1730 -3319 852.6983 345 Weight 142 lb 12.8 oz 142 lb 9.6 oz 135 lb 6.4 oz 135 lb 6.4 oz - General physical appearance well developed, well nourished, no distress - Eyes PERRL, normal ocular movement - ENT normal pinna, normal nares, normal mucosa, no hearing loss, no congestion - Neck no masses, no bruits, trachea midline, no lymphadenopathy, no venous distension - Respiratory normal expansion, normal respiratory effort, clear to auscultation - Cardiovascular Cardiovascular exam: Present: normal rate and rhythm, RRR, +S1, +S2. Absent: JVD, tachycardia - Abdomen tender (mild incisional tenderness), bowel sounds (present), surgical scars (none), masses (none) - Integumentary no rash, no growths, no abnormal pigmentation - Neurologic normal coordination, normal sensation - Musculoskeletal normal gait, normal posture - Psychiatric oriented to time, oriented to person, oriented to place, speech is normal, memory intact - Labs 05/15/19 05:21 05/15/19 05:41 Diabetes panel 05/15/19 Range/Units 05:41 Sodium 143 (133-145) mmol/L Potassium 3.4 (3.3-5.1) mmol/L Chloride 107 (96-108) mmol/L Carbon Dioxide 21 L (22-30) mmol/L BUN 4 L (8-23) mg/dl Creatinine 0.7 (0.6-1.1) mg/dl Glucose 102 (70-105) mg/dL Calcium 9.4 (8.6-10.4) mg/dl AST 41 H (0-37) U/l ALT 42 H (0-40) U/l Alkaline Phosphatase 44 (39-117) U/L Total Protein 7.1 (5.9-8.4) gm/dL Albumin 4.0 (3.2-5.2) gm/dL Triglycerides 117 (<150) mg/dl Calcium panel 05/15/19 Range/Units 05:41 Calcium 9.4 (8.6-10.4) mg/dl Phosphorus 3.5 (2.7-4.5) mg/dL Albumin 4.0 (3.2-5.2) gm/dL Pituitary panel 05/15/19 Range/Units 05:41 Sodium 143 (133-145) mmol/L Potassium 3.4 (3.3-5.1) mmol/L Chloride 107 (96-108) mmol/L Carbon Dioxide 21 L (22-30) mmol/L BUN 4 L (8-23) mg/dl Creatinine 0.7 (0.6-1.1) mg/dl Glucose 102 (70-105) mg/dL Calcium 9.4 (8.6-10.4) mg/dl Adrenal panel 05/15/19 Range/Units 05:41 Sodium 143 (133-145) mmol/L Potassium 3.4 (3.3-5.1) mmol/L Chloride 107 (96-108) mmol/L Carbon Dioxide 21 L (22-30) mmol/L BUN 4 L (8-23) mg/dl Creatinine 0.7 (0.6-1.1) mg/dl Glucose 102 (70-105) mg/dL Calcium 9.4 (8.6-10.4) mg/dl Total Bilirubin 0.7 (0.0-1.0) mg/dL AST 41 H (0-37) U/l ALT 42 H (0-40) U/l Alkaline Phosphatase 44 (39-117) U/L Total Protein 7.1 (5.9-8.4) gm/dL Albumin 4.0 (3.2-5.2) gm/dL Assessment and Plan (1) Hernia, internal Status: Acute Assessment and plan: Reduce Dilaudid 0.5 mg every 12 hours when necessary Substitute oxycodone 5 mg every 4 hours when necessary for oral intake. Check CBC and IP Saline lock IV * MiraLAX 3 times daily Current Visit: Yes - Time Spent With Patient Total time spent is greater than 50% in coordination of care (as documented) at patient's floor/unit and/or counseling patient:
[2019-05-15] MEDS: LORazepam 2 MG/ML VIAL IV PRN (21:19)
[2019-05-16] MEDS: oxyCODONE HCL 5 MG TABLET PO PRN ×2 (00:07→03:47)
[2019-05-16] MEDS: METOCLOPRAMIDE 10 MG/2 ML VIAL IV SCH ×2 (05:34→11:22)
[2019-05-16] MEDS: ACETAMINOPHEN 900 MG/90 ML BOTTLE IV SCH ×2 (05:35→11:22)
[2019-05-16] MEDS: 0.9 % SODIUM CHLORIDE 10 ML SYRINGE IV SCH (05:36)
[2019-05-16 06:12] LABS: Basophils # (Auto) 0.03 K/mcL (0.00-0.30); Basophils % (Auto) 0.4 % (0.0-2.0); Eosinophils # (Auto) 0.28 K/mcL (0.00-0.70); Eosinophils % (Auto) 3.5 % (0.0-7.0); Granulocytes % (Auto) 49.2 % (38.0-78.0); Hematocrit 34.8 % (34.1-44.9); Hemoglobin 11.4 g/dL (11.2-15.7); Lymphocytes % (Auto) 38.9 % (15.5-49.0); Mean Corpuscular HGB Conc 32.8 g/dL (31.0-36.0); Mean Platelet Volume 8.8 fL (7.4-10.4); Monocytes # (Auto) 0.64 K/mcL (0.10-0.90); Platelet Count 242 K/mcL (140-440); RBC 3.91 M/mcL (3.59-5.38); Red Cell Distribution Width 13.2 % (11.5-14.5)
[2019-05-16] MEDS: PANTOPRAZOLE 40 MG VIAL IV SCH (06:38)
--- NOTE | 2019-05-16 08:56 | Surgical Pathology Report ---
HISTOLOGY SPECIMEN MICROSCOPIC DIAGNOSIS APPENDIX, APPENDECTOMY: -- MILD EOSINOPHILIC APPENDICITIS. (ACP:sln) PROCEDURAL IMPRESSION Complete gastric outlet obstruction. GROSS DESCRIPTION Received in formalin labeled appendix, is a markham-tadeo appendix measuring 10.8 cm in length by up to 0.8 cm in diameter with attached tadeo fat. The resection margin is inked black. There is a tadeo fecalith. The wall ranges in thickness from 0.1 to 0.2 cm. Gun Mechanic sections submitted in one cassette. (SCB:sln) Electronically Signed by: Chadwick Salomon M.D.
[2019-05-16] MEDS: cefTRIAXone 1 GM VIAL IV SCH (09:22)
[2019-05-16] MEDS: POLYETHYLENE GLYCOL 3350 17 GM PACKET PO SCH (09:22)
--- NOTE | 2019-05-16 13:06 | Discharge Summary ---
Providers - Providers Patient information: Note initiated : 05/16/19 at 1:04 pm Service Date, if different from initiated Date: [] Patient: Sirisha Patterson 73 y/o F admitted on 05/11/19 for Stomach Pain. Chief Complaint: [] Date of admission: 05/11/19 Discharge date: 05/16/19 Attending physician: Dany Modi Hospitalization Hospital Course: 73-year-old female admitted with severe abdominal pain, nausea, vomiting. Evaluation revealed a right paraduodenal hernia with entrapment of the colon and multiple loops of small bowel and omentum. This caused compression of the antrum and blockage of the duodenum. Having been evaluated in the emergency room, patient was having large volumes of recurrent emesis. She was admitted, started on nasogastric suction and had laparotomy on 12 May. She was found to have a large paraduodenal hernia with colon and small bowel obstruction and malrotation of the right colon. She underwent laparotomy with repair of the paraduodenal hernia and appendectomy Because of the malrotation of the right colon. Patient had mild ileus in the postoperative period, but is now tolerating diet and having regular bowel movements. She is stable for discharge home Discharge diagnosis: paraduodenal hernia,. Right Secondary discharge diagnosis: Malrotation of right colon with obstruction Reason for admission: abdominal pain nausea and vomiting Procedures: Laparotomy with repair of paraduodenal hernia and appendectomy Pertinent studies/significant findings: CT of abdomen and pelvis with contrast Complications: Plan Exam Temp Pulse Resp BP Pulse Ox 98.2 F 88 12 132/72 96 05/16/19 08:00 05/16/19 08:00 05/16/19 08:00 05/16/19 08:00 05/16/19 08:00 - General physical appearance well developed, well nourished, no distress - Eyes PERRL, normal ocular movement - ENT normal pinna, normal nares, normal mucosa, no hearing loss, no congestion - Head Head exam IM: Present: atraumatic, normal inspection, normocephalic - Neck no masses, no bruits, trachea midline, no lymphadenopathy, no venous distension - Cardiovascular Cardiovascular exam IM: Present: normal rate and rhythm, RRR, +S1, +S2. Absent: JVD, tachycardia - Respiratory normal expansion, normal respiratory effort, clear to percussion, clear to auscultation - Abdomen Abdomen: Present: soft, tender (mild incisional tenderness;), bowel sounds, distended ( mild distention but soft with active bowel sounds) Hernia: Present: none - Genitourinary Present: normal external genitalia - Integumentary Present: no rash, no growths, no abnormal pigmentation - Neurologic Present: normal coordination, normal sensation - Musculoskeletal Present: normal gait, normal posture - Psychiatric Present: oriented to time, oriented to person, oriented to place, speech is normal, memory intact Discharge Plan - Patient/Caregiver Discharge Instructions Activity: increase activity as tolerated Diet: Regular Diet Additional Instructions: MiraLAX twice daily. Office visit in 10 days Prescriptions: oxyCODONE/APAP [Percocet 10-325Mg] 1 tab PO Q4HP PRN #30 tablet PRN Reason: Pain Transmission Status: Received by [facility] #[id number] RX: Promethazine [Phenergan] 25 mg PO Q4HP PRN #30 tab PRN Reason: Nausea Transmission Status: Pending to [facility] #[id number] - Follow up Plan Follow up with: Zenaida Lazar ARNP [Primary Care Provider] - Disposition: Home, Self-Care Prognosis: Good Rehab Potential: Good I certify that the patient requires SNF services.: No Overall status at discharge: patient is progressing back to baseline Pending Studies Resuscitation Status Full Code Diet GI Soft/Transitional Start TueMay 16 102 Ceftriaxone Sodium (Rocephin) 1 gm IV DAILY JULIET Last Admin: 05/16/19 09:22 Dose: 1 gm Documented by: [email or web address] Admin: 05/15/19 09:44 Dose: 1 gm Documented by: Admin: 05/14/19 08:31 Dose: 1 gm Documented by: Admin: 05/13/19 09:17 Dose: 1 gm Documented by: ALANA Hydralazine HCl (Apresoline) 10 mg IV Q4-6HP PRN PRN Reason: Hypertension Last Admin: 05/15/19 23:41 Dose: 10 mg Documented by: Admin: 05/15/19 15:50 Dose: 10 mg Documented by: Admin: 05/15/19 04:07 Dose: 10 mg Documented by: Admin: 05/14/19 00:11 Dose: 10 mg Documented by: Admin: 05/13/19 16:32 Dose: 10 mg Documented by: ALANA Hydromorphone HCl (Dilaudid) 0.5 mg IV Q2HP PRN; Protocol PRN Reason: Per Pain Protocol Last Admin: 05/13/19 23:30 Dose: 0.5 mg Documented by: Admin: 05/13/19 17:34 Dose: 0.5 mg Documented by: ALANA Acetaminophen (Ofirmev) 900 mg in 90 mls @ 200 mls/hr IV Q6H JULIET; Protocol Last Infusion: 05/16/19 11:50 Dose: 0 mls/hr Documented by: Admin: 05/16/19 11:22 Dose: 200 mls/hr Documented by: Infusion: 05/16/19 06:02 Dose: 0 mls/hr Documented by: Admin: 05/16/19 05:35 Dose: 200 mls/hr Documented by: Infusion: 05/16/19 00:07 Dose: 200 mls/hr Documented by: Admin: 05/15/19 23:40 Dose: 200 mls/hr Documented by: Infusion: 05/15/19 18:10 Dose: 200 mls/hr Documented by: Admin: 05/15/19 17:43 Dose: 200 mls/hr Documented by: TREVIDENEWard Infusion: 05/15/19 13:10 Dose: 0 mls/hr Documented by: TREVIDENEWard Admin: 05/15/19 12:35 Dose: 200 mls/hr Documented by: Infusion: 05/15/19 06:42 Dose: 0 mls/hr Documented by: Admin: 05/15/19 05:46 Dose: 200 mls/hr Documented by: Infusion: 05/15/19 00:37 Dose: 0 mls/hr Documented by: Admin: 05/15/19 00:01 Dose: 200 mls/hr Documented by: Infusion: 05/14/19 19:56 Dose: 0 mls/hr Documented by: Admin: 05/14/19 18:21 Dose: 200 mls/hr Documented by: Infusion: 05/14/19 13:30 Dose: 0 mls/hr Documented by: TREVIDENEWard Admin: 05/14/19 12:26 Dose: 200 mls/hr Documented by: Infusion: 05/14/19 06:05 Dose: 0 mls/hr Documented by: Admin: 05/14/19 05:31 Dose: 200 mls/hr Documented by: Infusion: 05/13/19 23:48 Dose: 200 mls/hr Documented by: Admin: 05/13/19 23:21 Dose: 200 mls/hr Documented by: Infusion: 05/13/19 18:05 Dose: 0 mls/hr Documented by: Admin: 05/13/19 17:33 Dose: 200 mls/hr Documented by: Infusion: 05/13/19 14:05 Dose: 0 mls/hr Documented by: Admin: 05/13/19 12:28 Dose: 200 mls/hr Documented by: Infusion: 05/13/19 07:17 Dose: 0 mls/hr Documented by: Admin: 05/13/19 05:54 Dose: 200 mls/hr Documented by: Infusion: 05/13/19 00:38 Dose: 200 mls/hr Documented by: Admin: 05/13/19 00:11 Dose: 200 mls/hr Documented by: Infusion: 05/12/19 18:21 Dose: 0 mls/hr Documented by: Admin: 05/12/19 17:47 Dose: 200 mls/hr Documented by: ALFRED Lorazepam (Ativan) 1 mg IV Q8HP PRN PRN Reason: ANXIETY/SEDATION Last Admin: 05/15/19 21:19 Dose: 1 mg Documented by: Admin: 05/13/19 02:25 Dose: 1 mg Documented by: LEATHA Metoclopramide HCl (Reglan) 10 mg IV Q6 JULIET Last Admin: 05/16/19 11:22 Dose: 10 mg Documented by: [email or web address] Admin: 05/16/19 05:34 Dose: 10 mg Documented by: Admin: 05/15/19 23:41 Dose: 10 mg Documented by: Admin: 05/15/19 17:43 Dose: 10 mg Documented by: Admin: 05/15/19 12:34 Dose: 10 mg Documented by: Admin: 05/15/19 05:46 Dose: 10 mg Documented by: Admin: 05/15/19 00:02 Dose: 10 mg Documented by: Admin: 05/14/19 18:11 Dose: 10 mg Documented by: [email or web address] Admin: 05/14/19 12:26 Dose: 10 mg Documented by: Admin: 05/14/19 05:32 Dose: 10 mg Documented by: Admin: 05/14/19 00:05 Dose: 10 mg Documented by: Admin: 05/13/19 17:34 Dose: 10 mg Documented by: Admin: 05/13/19 12:28 Dose: 10 mg Documented by: Admin: 05/13/19 05:55 Dose: 10 mg Documented by: Admin: 05/13/19 00:12 Dose: 10 mg Documented by: Admin: 05/12/19 18:16 Dose: 10 mg Documented by: MARIELENA Oxycodone HCl (Roxicodone) 5 mg PO Q4HP PRN; Protocol PRN Reason: Per Pain Protocol Last Admin: 05/16/19 03:47 Dose: 5 mg Documented by: Admin: 05/16/19 00:07 Dose: 5 mg Documented by: Admin: 05/15/19 16:49 Dose: 5 mg Documented by: Admin: 05/15/19 05:47 Dose: 5 mg Documented by: Admin: 05/15/19 00:02 Dose: 5 mg Documented by: Admin: 05/14/19 19:56 Dose: 5 mg Documented by: Admin: 05/14/19 15:14 Dose: 5 mg Documented by: Admin: 05/14/19 11:40 Dose: 5 mg Documented by: Admin: 05/14/19 05:57 Dose: 5 mg Documented by: Admin: 05/13/19 21:45 Dose: 5 mg Documented by: LEATHA Pantoprazole Sodium (Protonix) 40 mg IV BIDAC [facility] Admin: 05/16/19 06:38 Dose: 40 mg Documented by: [email or web address] Admin: 05/15/19 16:49 Dose: 40 mg Documented by: Admin: 05/15/19 08:05 Dose: 40 mg Documented by: TREVIDENEWard Admin: 05/14/19 18:20 Dose: 40 mg Documented by: Admin: 05/14/19 08:31 Dose: 40 mg Documented by: Admin: 05/13/19 16:32 Dose: 40 mg Documented by: Admin: 05/13/19 07:37 Dose: 40 mg Documented by: TREVIDENEWard Admin: 05/12/19 17:24 Dose: 40 mg Documented by: VIDHYAOURCONSTANZA Polyethylene Glycol (Miralax) 17 gm PO TID [facility] Admin: 05/16/19 09:22 Dose: 17 gm Documented by: [email or web address] Admin: 05/15/19 19:37 Dose: Not Given Documented by: Admin: 05/15/19 15:08 Dose: 17 gm Documented by: [email or web address] Sodium Chloride (Saline Flush) 10 ml IV Q8 [facility] Admin: 05/16/19 05:36 Dose: 10 ml Documented by: Admin: 05/15/19 20:17 Dose: Not Given Documented by: Admin: 05/15/19 19:48 Dose: 10 ml Documented by: Admin: 05/15/19 15:50 Dose: Not Given Documented by: Admin: 05/15/19 04:08 Dose: 10 ml Documented by: Admin: 05/14/19 20:57 Dose: 10 ml Documented by: Admin: 05/14/19 14:24 Dose: Not Given Documented by: Admin: 05/14/19 05:32 Dose: 10 ml Documented by: [email or web address] Admin: 05/13/19 21:47 Dose: Not Given Documented by: Admin: 05/13/19 14:05 Dose: Not Given Documented by: Admin: 05/13/19 05:55 Dose: 10 ml Documented by: Admin: 05/12/19 23:05 Dose: 10 ml Documented by: Admin: 05/12/19 14:31 Dose: 10 ml Documented by: [email or web address] Shift Summary 05/16/19 05:02 Shift Summary by Karen Sierra HPI: Ms. Patterson is a 73 year old F admitted with severe abdominal pain nausea and vomiting. The patient had onset of midepigastric pain about 4 AM today. The pain increased in intensity and she finally was seen in the emergency room. Initial x-rays were nondiagnostic but she continued to be symptomatic, so a follow-up CT was done. CT shows a right paraduodenal hernia with entrapment of hepatic flexure of colon and multiple loops of small bowel and omentum. This is causing compression of the antrum and blockage of the duodenum. She has a large volume of liquid in her stomach. The patient is having recurrent emesis while she is being evaluated, but this appears to be mostly contrast. She is counseled for laparotomy with reduction of the colon and small bowel loops and subsequent closure of the hernia defect into the lesser sac. Pt is A&O. Up at [facility] during the day. Pt receiving oxy 5mg x 2 for c/o pain and a dose of Ativan for sleep and anxiety last evening. Pt up with [facility] last evening r/t medication. Midline incision with 4x4 and Tegaderm CDI. Pt had BP last evening. HS miralax held. Pt request 0900 dose as she takes it once a day at home. Please address with . Pt has had no nausea this shift. Has been turning side to side and wedges in room. Will update with verbal report. Initialized on 05/16/19 05:02 - END OF NOTE
--- NOTE | 2019-05-23 09:09 | Operative Note ---
DATE OF OPERATION: 05/12/2019 PREOPERATIVE DIAGNOSES: Internal paraduodenal hernia with duodenal obstruction. POSTOPERATIVE DIAGNOSES: 1. Paraduodenal hernia with colon and small-bowel obstruction. 2. Malrotation of right colon. PROCEDURE: Laparotomy with reduction of paraduodenal hernia with repair of a paraduodenal defect, plication of cecum in right lower quadrant, and appendectomy. SURGEON: Dany Modi M.D. FINDINGS: Large retroperitoneal defect with herniation, multiple small bowel loops in right colon, including cecum and omentum. DESCRIPTION OF PROCEDURE: Under general anesthesia, the patient's abdomen was prepped and draped in a sterile field. Upper midline incision was made. Inspection upon entry of the abdomen revealed a small amount of clear peritoneal fluid. The duodenum was rotated anteriorly, and there was a large defect which actually went retroduodenal into the lesser sac. There were multiple loops of small bowel that were entering the defect and the major portion of the right colon, including cecum, and terminal ileum was also tightly adherent in the defect. There was a long mesentery without fixation of the right colon. Using gentle tension, the small bowel loops, which were actually not obstructed, were pulled from the herniated tissue in the lesser sac. The duodenum was Kocherized further to make the opening larger, after which the right colon, which was obstructed, was pulled through the defect. The right colon contained a large amount of soft stool. The omentum of the proximal transverse colon was also in the sac, and this was pulled out without injury. All of the small bowel in the colon were inspected. Except for the abnormal fixation of the cecum and right colon, no other pathology was noted. The cecum was closely inspected and was positioned in the lower abdomen. Appendectomy was done with a TA 30 stapler, and the appendiceal stump was inverted using a 3-0 silk. The cecum was then attached loosely in the right lower quadrant. Care had to be taken not to go [id number] since the cecal wall was extremely thin. This was attached in the right lower quadrant using 3-0 silk. Next, the thick band that surrounded the opening in the retroduodenal space was then sutured to the lateral peritoneum to effectively close the defect. Three sutures of silk were placed in the duodenal wall to give more integrity to the closure of the defect. The bowel was then inspected from the ligament of Treitz which was malpositioned to the cecum. The left colon appeared to be adequately positioned. The vessels were not angulated or compressed. A small amount of omentum that was thickened was excised using LigaSure. Irrigation was carried out. Nasogastric tube was positioned in the stomach. The sponge, needle, and instrument counts were correct. Fascia and peritoneum were closed with running #1 Prolene. Subcutaneous fat was closed with 2-0 Monocryl. Skin was closed with sussy. The patient tolerated the procedure well. She was awakened, extubated, and transferred to the postanesthetic care unit in a stable, satisfactory condition. LCS:abebe Job ID: [id number] Doc ID: [id number] Dany Modi M.D.
== END 2019-05-16 14:10 | disposition home or self-care (01) | DRG 342 ==
LOC: ED 08:29 → MEDSUR 18:34
PROVIDERS: ADMIT Family Medicine Adult Medicine; ATTEND Family Medicine Adult Medicine